=== PATIENT | female | born 1995 | race Two or more races ===

== ENCOUNTER 2024-08-20 19:13 | Emergency (ER) | payer OTHER ==
[~2024-08-20] VITALS: Ht 165.1 cm; Wt 81.6 kg
[2024-08-20] MEDS ORDERED: CLONAZEPAM2 M1 PO (20:02)
[2024-08-20] MEDS ORDERED: RESTORIL30 MG (20:03)
[2024-08-20] MEDS ORDERED: [UNRECOGNIZED DRUG - OTHER] (20:03)
[2024-08-20] MEDS ORDERED: XIPRESA (20:03)
[2024-08-20] MEDS ORDERED: KETOROLAC TROMETHAMINE 60 MG VIAL IM ONE ×2 (23:00→23:17)
[2024-08-20] MEDS ORDERED: CEFTRIAXONE SODIUM 1,000 MG VIAL IM ONE (23:00)
[2024-08-20] MEDS ORDERED: CEPHALEXIN500 MG PO (23:15)
[2024-08-20] MEDS ORDERED: CEFTRIAXONE SODIUM 1,000 MG VIAL ONE (23:17)
[2024-08-20] MEDS ORDERED: LIDOCAINE HCL/MPF 1% 5ML VIAL IJ ONE (23:18)
== END 2024-08-20 23:35 | disposition home or self-care (01) ==
LOC: ER 19:32
DX: H60.11 Cellulitis of right external ear (principal)
CPT/HCPCS: 96372; 99282; J0696; J1885